=== PATIENT | male | born 1960 | race Caucasian/White ===

== ENCOUNTER → 2019-12-04 05:59 | Outpatient (CLI) | payer OTHER, SELFPAY ==
--- NOTE | 2019-12-04 06:03 | ECHOD_ITS ---
Reason For Study: CHEST PAIN Procedure This was a 2D Doppler, Color Flow transthoracic echocardiogram. Exam performed in department. Left Ventricle Normal LV size. The estimated ejection fraction is 65 %. Normal diastology for age. No regional wall motion abnormalities noted. Right Ventricle Normal RV size. Normal systolic function. Atria Normal left atrium. Normal right atrium. No doppler evidence for ASD. Mitral Valve There is no mitral valve stenosis. No mitral valve insufficiency. Tricuspid Valve There is no tricuspid stenosis. Trivial tricuspid valve insufficiency. Pulmonary artery systolic pressure is 25-30 mmHg. Aortic Valve There is no aortic stenosis. No aortic valve insufficiency. Pulmonic Valve There is no pulmonic valvular stenosis. No pulmonic valve insufficiency. Great Vessels Normal aortic root. Pericardium/Pleural No pericardial effusion. Medication Definity deferred due to Kidney transplant. MMode/2D Measurements & Calculations LVIDd: 4.3 cm IVSd: 1.1 cm LVOT diam: 2.0 cm LVIDs: 2.5 cm LVPWd: 1.2 cm RVDd: 3.7 cm FS: 41.4 % LVOT area: 3.1 cm2 Ao root diam: 3.2 cm LAV(MOD-bp): 43.0 ml LA A4 area: 16.0 cm2 LAV(MOD-bp) Indexed: 20.2 ml/m2 LAV(MOD-sp2): 48.3 ml LAV(MOD-sp4): 38.3 ml LA dimension(2D): 3.8 cm RA A4 area: 16.9 cm2 Time Measurements MV dec time: 0.26 sec Doppler Measurements & Calculations MV E max lisandro: 102.8 cm/sec Lat Peak E' Lisandro: 8.7 cm/sec Med Peak E' Lisandro: 6.5 cm/sec MV A max lisandro: 80.8 cm/sec E/E' lat: 11.8 E/E' med: 15.8 MV E/A: 1.3 Ao V2 max: 220.7 cm/sec LV V1 max: 172.0 cm/sec SV(LVOT): 112.9 ml Ao max P.5 mmHg LV V1 max P.8 mmHg Ao V2 mean: 158.9 cm/sec LV V1 mean P.1 mmHg Ao mean P.1 mmHg LV V1 mean: 127.6 cm/sec Ao V2 VTI: 41.6 cm LV V1 VTI: 36.3 cm ISABELLA(I,D): 2.7 cm2 ISABELLA(V,D): 2.4 cm2 PA V2 max: 130.8 cm/sec TR max lisandro: 229.5 cm/sec TR max P.1 mmHg Interpretation Summary The estimated ejection fraction is 65 %. Normal diastology for age. Ordering Physician: Brenda Kumar Referring Physician: Brenda Kumar Performed By: Edie Thompson, RDCS, RVT
--- NOTE | 2019-12-05 17:18 | STRESSREP ---
Stress Test Report Date: 12/05/2019 Procedure: Pharmacologic stress nuclear imaging study Indications: Chest pain Consent: Per the patient Procedure: The patient underwent pharmacologic (Regadenoson) evaluation with a peak heart rate of 100 beats per minute (62%predicted maximal heart rate) and a peak blood pressure of 146/60 mmHg. The baseline ECG demonstrated normal sinus rhythm. EKG during lexiscan infusion revealed no significant ischemic changes. EKG post infusion revealed no significant ischemic changes. [There were no cardiac dysrhythmias pretest, during pharmacologic infusion, or recovery]. [There was no complaint of chest discomfort during pharmacologic infusion or recovery]. The examination was discontinued secondary to completion of protocol. Impression: 1. Lexiscan stress test test is negative for Lexiscan infusion induced EKG changes of ischemia. 2. Lexiscan stress test test is negative for Lexiscan infusion induced chest pain. 3. Results of the nuclear portion of the test is as below Myocardial perfusion imaging study: Technique: The patient was injected with 14.6 millicuries of technetium 99m Cardiolite and subsequently rest SPECT Cardiolite nuclear imaging was obtained in the horizontal long, vertical long, and short axis views. The patient underwent pharmacologic (Regadenoson) evaluation. Please see above for details. The patient was injected with 44.8 millicuries of technetium 99m Cardiolite and subsequently stress SPECT Cardiolite nuclear imaging was obtained in the horizontal long, vertical long, and short axis views. A gated Cardiolite study at peak stress was obtained. Interpretation: Rest and stress SPECT Cardiolite nuclear imaging status post realignment, normalization, and attenuation correction demonstrate normal myocardial radioisotope uptake at rest. There is mild decrease in the radioisotope uptake in the infero apical wall on the stress images. Gated images reveal no significant regional wall motion abnormalities. The reported LVEF is 66%. Impression: 1. There is possible mild inferoapical ischemia. 2. Estimated ejection fraction is 66%. This note was generated with [employer] software. It may contain incorrect words, spelling, and punctuation that were not noted in checking the note before signing.
== END ==
PROVIDERS: PCP Nurse Practitioner; Referring Provider Nurse Practitioner; Visit Provider Nurse Practitioner
DX: R07.89 Other chest pain (principal)
CPT/HCPCS: 78452; 93017; 93306; A9500; A4216; J2785